=== PATIENT | female | born 1940 | race Caucasian/White ===

== ENCOUNTER → 2017-08-21 | Outpatient (CLI) | payer MEDICARE, MEDICAID | END | disposition home or self-care (01) | LOC: GMAJ 14:54 | PROVIDERS: ATTEND Family Medicine | DX: N30.01 Acute cystitis with hematuria (principal); R30.0 Dysuria ==

== ENCOUNTER → 2017-09-13 | Outpatient (CLI) | payer MEDICARE, MEDICAID | END | disposition home or self-care (01) | LOC: GMAJ 14:49 | PROVIDERS: ATTEND Family Medicine | DX: R30.0 Dysuria (principal) ==

== ENCOUNTER → 2017-12-05 | Outpatient (CLI) | payer MEDICARE, MEDICAID | END | disposition home or self-care (01) | LOC: BFHH 10:52 | PROVIDERS: ATTEND Family Medicine | DX: N39.0 Urinary tract infection, site not specified (principal) ==

== ENCOUNTER → 2017-12-12 | Outpatient (CLI) | payer MEDICARE, MEDICAID | END | disposition home or self-care (01) | LOC: BFHH 11:29 | PROVIDERS: ATTEND Family Medicine | DX: N39.0 Urinary tract infection, site not specified (principal) ==

== ENCOUNTER → 2017-12-19 | Outpatient (CLI) | payer MEDICARE, MEDICAID | LOC: BFHH 15:11 | PROVIDERS: ATTEND Family Medicine | DX: N39.0 Urinary tract infection, site not specified (principal) ==

== ENCOUNTER → 2018-01-02 | Outpatient (CLI) | payer MEDICARE, MEDICAID | LOC: BFHH 09:11 | PROVIDERS: ATTEND Family Medicine | DX: I11.0 Hypertensive heart disease with heart failure (principal); I50.32 Chronic diastolic (congestive) heart failure; E03.9 Hypothyroidism, unspecified; E78.5 Hyperlipidemia, unspecified ==

== ENCOUNTER → 2018-02-14 | Outpatient (CLI) | payer MEDICARE, MEDICAID ==
--- NOTE | 2018-02-15 14:47 | US ---
EXAM DESCRIPTION: Carotid Duplex CLINICAL HISTORY: STENOSIS COMPARISON: None Available. TECHNIQUE: Carotid Doppler ultrasound FINDINGS: Right Submitted images show tortuosity of the right CCA with noncalcified plaque in the upper half of the cervical common carotid artery. Minimal calcified plaque in the proximal right ECA. Positive color flow in the carotid vessels with calcified plaque shadowing the right carotid bulb and proximal ICA. Elevated flow velocity in the proximal right ICA is seen up to 161 cm/s suggesting 60-79% stenosis. Transverse images through the right carotid bulb show 26% area luminal narrowing. Right ICA above the bulb shows 83% area luminal narrowing. The following flow velocities were obtained: Common carotid artery peak systolic flow velocity measurement equals 84 cm/s. Internal carotid artery peak systolic flow velocity measures 161 cm/s which is elevated. External carotid artery peak systolic flow velocity measures 122 cm/s, also elevated suggesting moderate origin stenosis. Flow in the right vertebral artery is antegrade. Left Submitted images show extensive soft plaque in the upper left CCA and at the left carotid bifurcation. Positive color flow is seen in the cervical carotid arteries with elevated flow velocity in the proximal left internal carotid artery 136 cm/s suggesting stenosis of 50-69%. Transverse image shows 15% luminal area narrowing of the carotid bulb and 8% narrowing of the proximal left ICA. However high velocity in the left ICA suggests a greater degree of luminal narrowing, perhaps at a slightly higher level than seen on the submitted transverse image. The following flow velocities were obtained: Common carotid artery peak systolic flow velocity measures 82 cm/s. Internal carotid artery peak systolic flow velocity measures 136 cm/s which is elevated. External carotid artery peak systolic flow velocity measures 85 cm/s. Flow in the left vertebral artery is antegrade. IMPRESSION: Elevated flow velocity in the proximal right internal carotid artery suggesting 60-79% stenosis. Elevated flow velocity in the left internal carotid artery suggesting 50-69% stenosis. Mildly elevated flow velocity in the right external carotid artery. Antegrade flow in the vertebral arteries. Electronically signed by: Galdino Penaloza MD 02/15/2018 2:45 PM CDT
== END ==
LOC: US 14:00
PROVIDERS: ATTEND Family Medicine
DX: I65.23 Occlusion and stenosis of bilateral carotid arteries (principal)

== ENCOUNTER → 2018-02-23 | Outpatient (CLI) | payer MEDICARE, MEDICAID ==
--- NOTE | 2018-02-23 16:17 | MRI ---
EXAM DESCRIPTION: Brain w/o Contrast: MRI. CLINICAL HISTORY: VASCULAR DEMENTIA. COMPARISON: MRI brain 01/27/2009. TECHNIQUE: Multiplanar, high-field MRI unit, multiple diffusion sequences, multiple conventional sequences without contrast. FINDINGS: Multifocal hyperintense FLAIR and T2-weighted signal in the periventricular white matter and melo-white matter junctions of the cerebral hemispheres. Relatively symmetric. . Similar bilateral focal hyperintensities in the basal ganglia on the periphery. No hemorrhage, no cerebral edema, no mass-effect. Normal signal in the brainstem and cerebellar hemispheres. No hemorrhage, no cerebral edema, no mass-effect. Concordance of the diffusion and non-diffusion sequences with no diffusion restriction. Cortical sulci, ventricles, and other CSF spaces, and the subdural spaces are normally configured for patients age.. No effacement or displacement. No midline shift. No extra-axial hemorrhage. Normal flow signal void in the major vessels of the [place], and the venous sinuses. IACs are symmetric bilaterally. Normal signal in the bilateral mastoid air cells. No mass effect in the bilateral cerebellopontine angles. Pituitary gland occupies all of the sella. Base of the cerebellar tonsils is at the level of the foramen magnum. Minimal mucoperiosteal thickening in the paranasal sinuses. The bony calvarium is intact. IMPRESSION: 1. Bilateral multifocal hyperintensities in the white matter and subcortical white matter and melo-white matter junctions symmetric and consistent with cerebral microvascular disease. No diffusion restriction. Less likely to represent demyelinating process, migraine headaches, vasculitis, or inflammatory process. No hemorrhage, mass effect, or cerebral edema. 2. Normal noncontrast MRI diffusion scan with no evidence of acute or subacute infarction. 3. Minimal paranasal chronic sinusitis. Electronically signed by: Hermilo Turner MD 02/23/2018 4:15 PM CDT
--- NOTE | 2018-02-26 14:25 | CT ---
CT angiography of neck with intravenous contrast HISTORY: Carotid stenosis COMPARISON: Carotid ultrasound performed on February 14, 2018 TECHNIQUE: CT angiography of extracranial circulation following timed bolus intravenous administration of 100 mL Optiray 320 contrast. MIPS and 3-D surface shaded image reformations performed in multiple planes. FINDINGS: Limited visualization of lung apices demonstrate no concerning finding. Visualized portions of central pulmonary arteries are patent without filling defect. Aortic arch is patent without aneurysmal dilatation nor dissection. Great vessels demonstrate unremarkable takeoff pattern from the aortic arch. There is calcified plaque along the origin of the left subclavian artery without flow limiting stenosis. Remainder of brachiocephalic trunk and proximal segments of subclavian arteries are unremarkably patent. Common, internal and external carotid arteries are patent bilaterally. Calcified plaques noted along the origin of the right internal carotid artery. Mixed plaques are seen along the origin and proximal segment of left internal carotid artery, providing focal 60% stenosis (in luminal diameter 1.9 mm, reference diameter 4.7 mm) by necessary criteria in the proximal left internal carotid artery. No flow limiting stenosis in remainder of either internal carotid artery. External carotid branches are unremarkably patent. Vertebral arteries are patent bilaterally through the neck. No abrupt cut off, aneurysmal dilatation, dissection nor arteriovenous malformation along major arteries of the neck. Petrous through terminal segments of both internal carotid arteries are unremarkably patent.. IMPRESSION: 1. Mixed plaques along proximal left internal carotid artery provides focal 60% stenosis 2. Calcified plaques along proximal right internal carotid artery without focal underlying flow limiting stenosis Electronically signed by: Gael Johnston MD 02/26/2018 2:23 PM CDT
== END | disposition home or self-care (01) ==
LOC: CT 14:00
PROVIDERS: ATTEND Family Medicine
DX: F01.51 Vascular dementia, unspecified severity, with behavioral disturbance (principal)

== ENCOUNTER → 2018-09-07 | Outpatient (CLI) | payer MEDICARE, MEDICAID | LOC: BFHH 09:43 | PROVIDERS: ATTEND Family Medicine | DX: I11.0 Hypertensive heart disease with heart failure (principal); I50.32 Chronic diastolic (congestive) heart failure; E03.9 Hypothyroidism, unspecified; E78.5 Hyperlipidemia, unspecified; N39.0 Urinary tract infection, site not specified ==

== ENCOUNTER → 2019-08-15 | Outpatient (CLI) | payer MEDICARE, MEDICAID | LOC: GMAJ 14:36 | PROVIDERS: ATTEND Family Medicine | DX: E03.8 Other specified hypothyroidism (principal); I10 Essential (primary) hypertension; E78.2 Mixed hyperlipidemia; I50.9 Heart failure, unspecified ==

== ENCOUNTER 2020-04-25 13:35 | Emergency (ER) | payer MEDICARE, MEDICAID ==
--- NOTE | 2020-04-25 14:40 | RAD ---
EXAM DESCRIPTION: XRAY Chest,1 View CLINICAL HISTORY: 80 years Female, weakness COMPARISON: None. FINDINGS: Cardiomediastinal silhouette is normal. No focal consolidation, pneumothorax or pleural effusion. IMPRESSION: No acute findings. Electronically signed by: Robbin Zuniga MD 04/25/2020 2:39 PM CDT
--- NOTE | 2020-04-25 14:40 | CT ---
EXAM DESCRIPTION: Cervical Spine CLINICAL HISTORY: fall, possible syncope. COMPARISON: None. TECHNIQUE: Axial imaging is performed with sagittal and coronal reformations. Automatic exposure control (A EC), mA and/or kV adjustment by patient size, and/or iterative reconstructive technique was used, per departmental dose optimization program, during the performance of the CT examination. 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 Normal alignment of the cervical vertebral bodies are noted without any evidence of fracture, deformity or subluxation. The odontoid process and the craniocervical junction appears unremarkable. Prevertebral soft tissues are normal. The zygapophyseal joints and the facets demonstrate normal alignment. The bones are normally mineralized. Significant degenerative changes noted at C5-6 and C6-7 levels with disc space narrowing and posterior spondylosis with mild encroachment upon the thecal sac zygapophyseal joint degenerative changes are noted on the right side at C4-5 and on the left at C4-5 and C3-4 levels. Prominent anterior marginal osteophytes are noted. Uncovertebral joint hypertrophic changes are noted. Dense calcifications are seen in both carotid bulbs.. There is no encroachment upon the spinal canal. IMPRESSION: Degenerative disc disease and cervical spondylosis in the lower cervical spine. No evidence of fracture. Electronically signed by: Shayy Feldman MD 04/25/2020 2:38 PM CDT
--- NOTE | 2020-04-25 14:46 | CT ---
EXAM DESCRIPTION: Head CLINICAL HISTORY: 80 years Female fall, possible syncope TECHNIQUE: Axial noncontrast CT head with coronal and sagittal reformats. All CT scans at this facility use dose modulation, iterative reconstruction, and/or weight based dosing when appropriate to reduce radiation dose to as low as reasonably achievable. COMPARISON: MRI brain February 23, 2018. FINDINGS: Diffuse parenchymal volume loss. Chronic small vessel disease. No intracranial hemorrhage, midline shift, mass, mass effect, hydrocephalus or extra-axial fluid collection. No obvious large territorial infarction. Orbits are normal. Paranasal sinuses and mastoid air cells are clear. Osseous structures and soft tissues are unremarkable. IMPRESSION: No acute findings. Electronically signed by: Robbin Zuniga MD 04/25/2020 2:45 PM CDT
[2020-04-25] MEDS ORDERED: SODIUM CHLORIDE 0.9% 1000ML 1,000 ML IVS ONE (15:20)
[2020-04-25] MEDS ORDERED: CIPROFLOXACIN 500 MG TAB PO ONE (17:43)
[2020-04-25] MEDS ORDERED: cefTRIAXone SODIUM 1 GM VIAL IM ONE (17:43)
--- NOTE | 2020-04-25 17:48 | ED.PDOC ---
History of Present Illness - General Chief Complaint: Trauma Stated Complaint: Pt had fall yesterday. Weak and dizzy today Time Seen by Provider: 04/25/20 13:40 Source: patient Exam Limitations: no limitations - History of Present Illness Initial Comments: The patient is an 80-year-old female presented emergency room secondary to a feeling of generalized weakness and tremulousness. No other more specific symptoms. She actually fell yesterday. She is uncertain if she passed out or not yesterday. She does states that she hit her head but she did not sore. No altered mental status here. She is pleasant and cooperative. No neck pain. No urinary symptoms. No nausea vomiting or diarrhea. No cough or sore throat or shortness of breath. No chest pain or palpitations. Timing/Duration: unsure Severity: moderate Improving Factors: nothing Worsening Factors: nothing Associated Symptoms: malaise, weakness - Generalized Allergies/Adverse Reactions: Allergies NO KNOWN ALLERGY Allergy (Verified 04/25/20 14:00) Home Medications: Ambulatory Orders Ciprofloxacin [Cipro] 500 mg PO BID #10 tab 04/25/20 Review of Systems - Review of Systems Constitutional: States: malaise, weakness - Generalized EENTM: States: no symptoms reported Respiratory: States: no symptoms reported Cardiology: States: no symptoms reported Gastrointestinal/Abdominal: States: no symptoms reported Genitourinary: States: no symptoms reported Musculoskeletal: States: no symptoms reported Skin: States: no symptoms reported Neurological: States: no symptoms reported Endocrine: States: no symptoms reported All other Systems: No Change from Baseline Past Medical History (General) - Patient Medical History Hx Stroke: No Hx of COPD: No Hx Cardiac Disorders: No Hx Hypertension: Yes Hx Thyroid Disease: Yes - Hypo Hx Diabetes: No Hx Cancer: Yes Surgical History: Hysterectomy - Vaccination History Hx Influenza Vaccination: Yes Hx Pneumococcal Vaccination: Yes - Social History Hx Tobacco Use: Yes Hx Alcohol Use: Yes - Occasional Hx Substance Use: No Hx Substance Use Treatment: No Hx Depression: No - Activities of Daily Living Hospice Agency (if applicable):: None - Female History Patient is a Female of Child Bearing Age (10 -59 yrs old): No Patient : No Family Medical History - Family History Mother Family History: Unknown Living Status: Physical Exam - Physical Exam General Appearance: Alert, Comfortable, No apparent distress Eye Exam: bilateral normal Ears, Nose, Throat: hearing grossly normal, normal pharynx Neck: full range of motion, supple Respiratory: lungs clear, normal breath sounds, no respiratory distress, no accessory muscle use Cardiovascular/Chest: normal peripheral pulses, regular rate, rhythm, no edema Peripheral Pulses: radial,right: 2+, radial,left: 2+ Gastrointestinal/Abdominal: non tender, soft Rectal Exam: deferred Back Exam: no CVA tenderness, no vertebral tenderness Extremity: normal range of motion, non-tender, normal inspection, no pedal edema, normal capillary refill Neurologic: rehabilitation program manager II-XII nml as tested, alert, normal mood/affect, oriented x 3 Skin Exam: normal color Comments: Vital Signs - 24 hr 04/25/20 04/25/20 04/25/20 13:35 13:51 14:35 Temperature 97.5 F L Pulse Rate [ 69 69 62 Pulse ox] Respiratory 16 16 Rate Blood Pressure 171/71 180/68 [L brachial] O2 Sat by Pulse 97 97 Oximetry 04/25/20 04/25/20 04/25/20 14:37 14:38 15:00 Temperature Pulse Rate [ 61 60 60 Pulse ox] Respiratory 14 Rate Blood Pressure 181/72 147/61 176/72 [L brachial] O2 Sat by Pulse 96 96 96 Oximetry 04/25/20 16:00 Temperature 96.5 F L Pulse Rate [ 57 L Pulse ox] Respiratory 13 Rate Blood Pressure 214/71 [L brachial] O2 Sat by Pulse 99 Oximetry Progress - Progress Progress: 04/25/20 17:50 The patient is an 80-year-old female presented emergency room secondary to a feeling of generalized weakness. The patient is found to have a significant urinary tract infection and mild orthostasis. Urine will be cultured. The patient is given a dose of Rocephin and ciprofloxacin here and will be continued on ciprofloxacin for the next 5 days as an outpatient. She needs to keep her self well-hydrated. Additionally in order to prevent further falls she does need to brace herself for about 15 seconds after she stands up in order to reduce dizziness and falls. I do believe that she does need to talk with her primary care doctor about getting set up physical therapy for strength and conditioning and gait training. Imaging and laboratory work was otherwise reassuring. ER warnings were given for any significant worsening. Patient agrees with the plan of care. se [email or web address] [phone] 04/25/20 17:53 - Results/Orders Results/Orders: Single view chest x-ray shows no acute abnormalities. CT scan of the head and cervical spine showed no acute pathology. Chronic changes are present. EKG shows normal sinus rhythm at 69 bpm. Normal axis. Borderline poor R wave progression. No definitive ST segment or T wave changes indicative of acute ischemia. Normal QT interval. On tilt vitals checked the patient does not technically become hypotensive but she does have about a 50 point drop in the systolic blood pressure. Laboratory Tests 04/25/20 04/25/20 04/25/20 14:31 14:31 16:47 WBC 6.4 RBC 4.28 Hgb 13.4 Hct 38.7 MCV 90.3 MCH 31.2 H MCHC 34.5 RDW 13.2 Plt Count 225 MPV 7.9 Absolute Neuts (auto) 3.80 Absolute Lymphs (auto) 1.90 Absolute Monos (auto) 0.50 Absolute Eos (auto) 0.20 Absolute Basos (auto) 0.10 Neutrophils % 59.8 Lymphocytes % 29.1 Monocytes % 7.9 Eosinophils % 2.4 Basophils % 0.8 Sodium 137 Potassium 4.0 Chloride 107 Carbon Dioxide 21 Anion Gap 13.0 BUN 13 Creatinine 0.92 BUN/Creatinine Ratio 14.1 Random Glucose 101 Serum Osmolality 274.1 L Calcium 9.1 Magnesium 2.1 Total Bilirubin 0.9 AST 20 ALT 11 Alkaline Phosphatase 79 Creatine Kinase 35 CK-MB (CK-2) 1.2 CK-MB (CK-2) % Not Reportable Troponin I < 0.02 B-Natriuretic Peptide 99.9 Serum Total Protein 7.0 Albumin 3.7 Globulin 3.3 Albumin/Globulin Ratio 1.1 TSH 0.49 Urine Color Yellow Urine Appearance Cloudy H Urine pH 5.0 Ur Specific [place] 1.025 Urine Protein Trace Urine Glucose (UA) Negative Urine Ketones Negative Urine Blood Small H Urine Nitrite Negative Urine Bilirubin Negative Urine Urobilinogen 0.2 Ur Leukocyte Esterase Moderate H Urine RBC 5-10 H Urine WBC >50 H Ur Epithelial Cells 5-10 Urine Bacteria 1+ Urine Mucus Moderate - EKG/XRAY/CT CT Ordered: Yes Departure - Departure Clinical Impression: Gait instability, Orthostasis, Cystitis Fall at home Qualifiers: Encounter type: initial encounter Qualified Code(s): W19.XXXA - Unspecified fall, initial encounter; Y92.009 - Unspecified place in unspecified non- institutional (private) residence as the place of occurrence of the external cause Disposition: Discharge to Home or Self Care Condition: Fair Departure Forms: ED Discharge - Pt. Copy, Patient Portal Self Enrollment Diet: regular diet Activity: increase activity as tolerated Referrals: Philip Pino MD [Primary Care Provider] - 1-2 Weeks Prescriptions: Ciprofloxacin [Cipro] 500 mg PO BID #10 tab Home Medications: Ambulatory Orders Ciprofloxacin [Cipro] 500 mg PO BID #10 tab 04/25/20 Additional Instructions: The patient is an 80-year-old female presented emergency room secondary to a feeling of generalized weakness. The patient is found to have a significant urinary tract infection and mild orthostasis. Urine will be cultured. The patient is given a dose of Rocephin and ciprofloxacin here and will be continued on ciprofloxacin for the next 5 days as an outpatient. She needs to keep her self well-hydrated. Additionally in order to prevent further falls she does need to brace herself for about 15 seconds after she stands up in order to reduce dizziness and falls. I do believe that she does need to talk with her primary care doctor about getting set up physical therapy for strength and conditioning and gait training. Imaging and laboratory work was otherwise reassuring. ER warnings were given for any significant worsening. Patient agrees with the plan of care.
[2020-04-25] MEDS ORDERED: LIDOCAINE 1% 2 ML VIAL INJ ONE (17:58)
[2020-04-25 19:21] VITALS: BP 213/76; TEMP 97.1; O2SAT 98
== END 2020-04-25 18:10 | disposition home or self-care (01) ==
LOC: ER 13:35
DX: R26.9 Unspecified abnormalities of gait and mobility (principal); N30.00 Acute cystitis without hematuria; I10 Essential (primary) hypertension; E03.9 Hypothyroidism, unspecified; R42 Dizziness and giddiness; R53.1 Weakness; Z87.891 Personal history of nicotine dependence; W19.XXXA Unspecified fall, initial encounter; Y92.009 Unspecified place in unspecified non-institutional (private) residence as the place of occurrence of the external cause
CPT/HCPCS: 36415; 70450; 71045; 72125; 80053; 81001; 82550; 82553; 83735; 83880; 84443; 84484; 85025; 87086; 93005; J0696; J7030

== ENCOUNTER → 2020-10-02 | Outpatient (CLI) | payer MEDICARE, MEDICAID | LOC: GT 10:07 | PROVIDERS: ATTEND Family Medicine | DX: U07.1 COVID-19 (principal); R09.02 Hypoxemia; R71.8 Other abnormality of red blood cells ==

== ENCOUNTER → 2020-10-06 | Outpatient (CLI) | payer MEDICARE, MEDICAID | LOC: GT 08:16 | PROVIDERS: ATTEND Family Medicine | DX: R09.02 Hypoxemia (principal); R71.8 Other abnormality of red blood cells ==